=== PATIENT | female | born 1970 | race Caucasian/White ===

== ENCOUNTER 2016-06-23 15:26 | Emergency (ER) | payer OTHER ==
[2016-06-23 15:38] VITALS: BP 111/91; PULSE 93; RESP 16; TEMP 98.8; O2SAT 96
--- NOTE | 2016-06-23 16:09 | UCPHY ---
H & P Time Seen by Provider: 06/23/16 15:37 Patient Type: New HPI/ROS: Chief complaint: [persistent cough with moderate fevers as well as sinus pressure ] HPI: [ 46-year-old otherwise healthy female returned from a ten-day excursion to the [facility] approximately 2 weeks ago. At that time she felt well and did not have any particular trouble on the plane flight. However, or a teenage son became ill with a 48 hour illness with fever shortly after arrival. She herself did not become sick until approximately 7 days ago. Since that time she has had a moderate cough. Cough gets particular better for him keeps her awake. Along with this she has had body aches, not much in way of fever, and notes that the cough is dry. Furthermore while she did not have any trouble on the plane she does note if she bends over she has quite a bit of pain across the maxillary sinuses. There has been no sense of postnasal drip. T-max over the course of the last week has been 104. Last time she had a sensation of fever was yesterday afternoon while at work.] ROS: Constitutional - see above Eyes - no discharge, or injection ENT - no earache, change in hearing, difficulty swallowing, sore throat. Respiratory - no wheezing or pleuritic chest pain Musculoskeletal - mild to moderate muscle aches particularly in the morning after lying in bed for 11 hours Integument - no rashes. Neurological - no numbness, tingling, or paresthesias. No focal motor weakness. Immunological - no swelling or lymphadenopathy 10 point ROS otherwise negative Smoking Status: Never smoked Physical Exam: Gen: Well developed, well nourished. Nontoxic. HEENT: Normocephalic. Ears: TMs are clear. Hearing normal. Eyes: PERRL. No conjunctival injection or pallor. no jaundice. Nose: No nasal discharge. Sinuses are nontender to the frontal however the bilateral maxillary sinus tenderness is noted.. Throat: Membranes are moist. Oropharynx is without erythema or exudate. Normal phonation. Lungs: Good air entry into both lungs. There is really no wheeze. However there is decreased air entry into the right base and there is rales as well Skin: Good color, without pallor. There is no diaphoresis. Skin is warm and dry , without diaphoresis. Intact without rashes Constitutional: Initial Vital Signs Temperature (C) 37.1 C 06/23/16 15:35 Heart Rate 93 06/23/16 15:35 Respiratory Rate 16 06/23/16 15:35 Blood Pressure 111/91 H 06/23/16 15:35 O2 Sat (%) 96 06/23/16 15:35 O2 Delivery Mode Room Air Allergies/Adverse Reactions: No Known Allergies Allergy (Unverified 06/23/16 15:35) Home Medications: Medication Instructions Recorded Azithromycin [Zithromax] 250 mg PO DAILY #6 tab 06/23/16 Benzonatate 200 mg PO TID PRN #28 capsule 06/23/16 Cefpodoxime Proxetil [Vantin] 200 mg PO BID #20 tab 06/23/16 Multivitamins [Multivitamin (*)] 06/23/16 Medical Decision Making ED Course/Re-evaluation: On clinical exam she has particular stigmata of pneumonia. I am less convinced of the sinusitis is underlying cause as she has only been sick for 7 days. The Vantin will help to treat both. However she does not have complete resolution or substantial resolution 2 days then she should and Zithromax. We discussed this. Also, she does take probiotics daily as it is and she will add over to the regimen Differential Diagnosis: Diagnostic considerations include, but are not limited to, the following: URI, sinusitis, pharyngitis, otitis media, pneumonia, allergy, influenza. Departure - Departure Clinical Impression: Pneumonia Qualifiers: Pneumonia type: due to unspecified organism Laterality: right Lung location: lower lobe of lung Qualified Code(s): J18.1 - Lobar pneumonia, unspecified organism Sinusitis Qualifiers: Sinusitis location: maxillary Chronicity: acute Recurrence: not specified as recurrent Qualified Code(s): J01.00 - Acute maxillary sinusitis, unspecified Condition: Good Instructions: Sinusitis (ED), Bacterial Pneumonia (ED) Additional Instructions: To suppress the cough: Take DELSYM 4 tsp twice a day OR Benzonatate Start the Vantin. After 3 days if you not 50% better than at the Zithromax. See your family doctor in 1 weeks time if you have any residual illness Referrals: NONE *PRIMARY CARE P,. [Primary Care Provider] - As per Instructions Cher Siu MD [Medical Doctor] - As per Instructions Prescriptions: Azithromycin [Zithromax] 250 mg PO DAILY #6 tab Benzonatate 200 mg PO TID PRN #28 capsule PRN Reason: Cough, Moderate Cefpodoxime Proxetil [Vantin] 200 mg PO BID #20 tab - PQRS PQRS Measurement: NA
== END 2016-06-23 16:33 | disposition home or self-care (01) ==
LOC: CED 15:26
DX: J18.1 Lobar pneumonia, unspecified organism (principal); J01.00 Acute maxillary sinusitis, unspecified
CPT/HCPCS: 99203-PO; G0463-PO

== ENCOUNTER → 2017-07-05 | Outpatient (CLI) | payer OTHER | LOC: FIMAGING 07:45 | PROVIDERS: ATTEND Obstetrics & Gynecology | DX: Z12.31 Encounter for screening mammogram for malignant neoplasm of breast (principal); Z80.3 Family history of malignant neoplasm of breast ==